=== PATIENT | female | born 1995 | race Two or more races ===

== ENCOUNTER 2021-05-01 00:03 | Emergency (ER) | payer OTHER ==
[~2021-05-01] VITALS: Ht 157.5 cm; Wt 49.9 kg
[2021-05-01] MEDS ORDERED: LIDOCAINE 1% HCL (LOCAL ANESTH.) INJ 20ML MDV ID ONE (01:30)
[2021-05-01] MEDS ORDERED: TETANUS-DIPTH-ACEL PERTUSSIS 0.5ML SYR Tdap IM ONE (04:00)
[2021-05-01] MEDS ORDERED: CEPH-322 PO (04:03)
[2021-05-01] MEDS ORDERED: IBUP800T27 PO (04:03)
[2021-05-01 04:19] VITALS: BP 98/75
== END 2021-05-01 04:25 | disposition home or self-care (01) ==
LOC: ER 00:03
DX: S01.21XA Laceration without foreign body of nose, initial encounter (principal); W22.8XXA Striking against or struck by other objects, initial encounter; Y93.89 Activity, other specified; Y92.89 Other specified places as the place of occurrence of the external cause; Y99.8 Other external cause status
CPT/HCPCS: 12011; 90471; 90715; 99283; J2001